=== PATIENT | male | born 1995 | race Caucasian/White ===

== ENCOUNTER → 2023-06-09 14:44 | Outpatient (BNVA) | payer BC, SELFPAY | PROVIDERS: PCP Family Medicine; Visit Provider Family Medicine | DX: E66.3 Overweight (principal); K21.9 Gastro-esophageal reflux disease without esophagitis | CPT/HCPCS: 80053; 80061; 85025 ==

== ENCOUNTER 2024-07-14 07:13 | Emergency (ER) | payer OTHER, SELFPAY ==
[2024-07-14 07:22] VITALS: BP 150/96; PULSE 97; RESP 17; TEMP 36.4; O2SAT 97; BMI 29.0
--- NOTE | 2024-07-14 07:36 | W.ED.BACK ---
HPI - Back Pain/Injury General: Chief Complaint: Back Pain/Injury Stated Complaint: lower back pain Time Seen by Provider: 07/14/24 07:14 Source: patient Mode of arrival: ambulatory Limitations: no limitations History of Present Illness: 29-year-old male states he was working on Tuesday he states he had got out of a skid steer and started having low back pain states he had low back pain issues in the past he states his pain is worsened since Tuesday states its much worse when he tries to stand up straight or walking denies any bowel or bladder incontinence rates pain a 6 out of 10 currently does improve with rest. Associated symptoms: Deny abdominal pain, chills, fever(s), nausea or vomiting Related Data Home Medications ?Medication ?Instructions ?Recorded ?Confirmed multivitamin 1 tab PO DAILY 12/16/23 06/28/24 Previous Rx's ?Medication ?Instructions ?Recorded buspirone 15 mg tablet 15 mg PO BID #180 tabs 06/28/24 doxycycline monohydrate 100 mg 100 mg PO BID 10 days #20 caps 06/28/24 capsule pantoprazole 20 mg tablet,delayed 20 mg PO DAILY PRN acid reflux #30 06/28/24 release tabs methocarbamol 750 mg tablet 750 mg PO Q6H PRN spasms #20 tabs 07/14/24 naproxen 500 mg tablet (Naprosyn) 500 mg PO BID PRN pain #20 tabs 07/14/24 Allergies Allergy/AdvReac Type Severity Reaction Status Date / Time No Known Allergies Allergy Unverified 06/28/24 12:49 Review of Systems Const: Denies: fever(s), chills, body aches or change in appetite ENMT: Denies: throat pain or dental pain Card: Denies: chest pain Resp: Denies: dyspnea GI: Denies: abdominal pain, nausea, vomiting or diarrhea Musc: Reports: back pain; Denies: neck pain Skin/Breast: Denies: rash Neuro: Denies: headache(s) PFSH ED PFSH: Medical History Generalized anxiety disorder Moderate major depression PUD (peptic ulcer disease) GERD (gastroesophageal reflux disease) Family History Father Cancer Social History Smoking and tobacco/nicotine status: former use of tobacco/nicotine Alcohol intake: current Alcohol intake frequency: holidays/special occasions only Substance/Drug Use: never Adopted: No service: No Current occupational exposures/hazards: No Current gender identity: Male Physical Exam Const: COMMON NORMALS: no acute distress, patient oriented x3 and healthy appearing HENMT: COMMON NORMALS: normocephalic and atraumatic HEAD & SCALP: normocephalic and atraumatic Neck/C-Spine: COMMON NORMALS: full ROM and supple Chest: COMMONS NORMALS: normal inspection of the chest Resp: COMMON NORMALS: normal respiratory effort Cardio: COMMON NORMALS: regular rate RATE: regular rate Back/Pelvis: OTHER: Paraspinal tenderness to low back Extremity: COMMON NORMALS: normal to inspection and full ROM Neuro: COMMON NORMALS: patient oriented x3, moves all extremities and no focal motor deficits Psych: COMMON NORMALS: mental status grossly normal, Normal thought process present and cooperative THOUGHT PROCESS: Normal thought process present Skin: COMMON NORMALS: no rashes or lesions noted and no wounds GENERAL SKIN EXAM: no rashes or lesions noted Course Vital Signs: Vital signs: Vital Signs Temperature 97.5 F L 07/14/24 07:22 Pulse Rate 97 07/14/24 07:22 Respiratory Rate 17 07/14/24 07:22 Blood Pressure 150/96 07/14/24 07:22 Pulse Oximetry 97 07/14/24 07:22 Oxygen Delivery Me thod Room Air 07/14/24 07:22 MDM - Back Pain/Injury Medical Decision Making Patient presents with low back pain likely muscular in nature no signs of epidural abscess or cord compression he is stable for discharge follow-up with PCP return if worsening. Medical Records I reviewed the patient's medical records. Labs I reviewed the patient's lab results. Radiology Impressions Lumbar Spine X-Ray 07/14/24 07:36 PROCEDURE INFORMATION: Exam: XR Lumbosacral Spine Exam date and time: 07/14/2024 7:49 AM Age: 29 years old Clinical indication: Low back pain TECHNIQUE: Imaging protocol: Radiologic exam of the lumbosacral spine. Views: 2 or 3 views. COMPARISON: No relevant prior studies available. FINDINGS/IMPRESSION: Bones/joints: There is normal anatomic alignment of the lumbosacral spine. No acute fracture identified. There is chronic degenerative disc disease at L4-L5. The sacrum is intact. Soft tissues: Unremarkable. XR interpretation done by ED provider, pending radiology final review ED provider radiology interpretation(s): X-ray lumbar spine no acute abnormality Discharge Plan Discharge Patient Disposition: Home Clinical Impression: Low back pain Condition: Stable Prescriptions: New methocarbamol 750 mg tablet 750 mg PO Q6H PRN (Reason: spasms) Qty: 20 0RF naproxen [Naprosyn] 500 mg tablet 500 mg PO BID PRN (Reason: pain) Qty: 20 0RF No Action multivitamin Tablet 1 tab PO DAILY pantoprazole 20 mg tablet,delayed release (DR/EC) 20 mg PO DAILY PRN (Reason: acid reflux) Qty: 30 2RF doxycycline monohydrate 100 mg capsule 100 mg PO BID 10 Days Qty: 20 0RF buspirone 15 mg tablet 15 mg PO BID Qty: 180 3RF Discharge Orders: Discharge ED (Routine); Ordered 07/14/24 Ordered By: Andressa Mackey Referrals: Arpan Goncalves MD [Primary Care Provider, Family Practice] - 4-7 days Discharge Diet: Advance as tolerated Discharge Activity: Resume usual activity Patient Instructions: Acute Low Back Pain (ED) Print Language: Haitian Coding Level of Care Code ED Director Of Sales And Marketing for Heather Ozuna
[2024-07-14] MEDS: methocarbamol 750 mg Tablet 1500 MG PO (07:39)
[2024-07-14] MEDS: ketorolac 60 mg/2 mL INJ IM (07:40)
[2024-07-14 08:30] VITALS: BP 122/76; PULSE 66; O2SAT 95
== END 2024-07-14 08:31 | disposition home or self-care (01) ==
PROVIDERS: Emergency Provider Emergency Medicine; PCP Family Medicine
DX: M54.50 Low back pain, unspecified (principal); Z87.891 Personal history of nicotine dependence
CPT/HCPCS: 72100; 96372; 99284; J1885; J9999